=== PATIENT | male | born 1995 ===

== ENCOUNTER 2020-10-24 17:39 | Emergency (ER) | payer OTHER ==
[2020-10-24] MEDS ORDERED: Azithromycin 250 MG Tab PO ONE (19:40)
[2020-10-24] MEDS ORDERED: predniSONE 20 MG Tab PO ONE (19:40)
--- NOTE | 2020-10-24 19:49 | EDM.PDOC ---
ED HPI GENERAL MEDICAL PROBLEM - General Chief Complaint: ENT Problem Stated Complaint: HEAD ACHE ABOVE THE LEFT EYE Time Seen by Provider: 10/24/20 19:35 Source of Information: Reports: Patient History Limitations: Reports: No Limitations - History of Present Illness INITIAL COMMENTS - FREE TEXT/NARRATIVE: This 25 yo male patient reports to the ED with a left sided headache. The patient reports he is feeling like the left side of his head has been in a vice and the pressure is getting worse. The patient has been taking Tylenol, ibuprofen and Sudafed with little to no symptom relief. Onset Date: 10/23/20 Duration: Constant Location: Reports: Head (left maxillary and left frontal sinus pressure and pain with palpation. ) Quality: Reports: Ache, Dull, Pressure Severity: Moderate Improves with: Reports: None Worsens with: Reports: None Associated Symptoms: Reports: No Other Symptoms Treatments [employer]ER: Reports: Acetaminophen, NSAIDS Left Upper Eye Pain Score (Numeric/FACES): 10 - Related Data Allergies Allergy/AdvReac Type Severity Reaction Status Date / Time amoxicillin [From Augmentin] Allergy Cannot Verified 10/24/20 19:17 Remember clavulanic acid Allergy Cannot Verified 10/24/20 19:17 [From Augmentin] Remember Home Meds: Home Meds . [No Known Home Meds] 10/24/20 [History] Past Medical History - Past Health History Medical/Surgical History: Denies Medical/Surgical History Social & Family History - Tobacco Use Tobacco Use Status *Q: Never Tobacco User Second Hand Smoke Exposure: No - Caffeine Use Caffeine Use: Reports: Coffee, Energy Drinks - Alcohol Use Date of Last Drink: 10/19/20 - Recreational Drug Use Recreational Drug Use: No ED ROS ENT - Review of Systems Review Of Systems: Comprehensive ROS is negative, except as noted in HPI. ED EXAM, ENT - Physical Exam Exam: See Below Exam Limited By: No Limitations General Appearance: Alert, WD/WN, Moderate Distress Eye Exam: Bilateral Eye: EOMI, Normal Inspection, PERRL Ears: Normal External Exam, Normal Canal, Hearing Grossly Normal, Normal TMs Nose: Normal Inspection, Normal Mucousa, No Blood Mouth/Throat: Normal Inspection, Normal Gums, Normal Lips, Normal Oropharynx, Normal Teeth Head: Sinus Tenderness (left frontal and maxillary) Neck: Normal Inspection, Supple, Non-Tender, Full Range of Motion Respiratory/Chest: No Respiratory Distress, Lungs Clear, Normal Breath Sounds, No Accessory Muscle Use, Chest Non-Tender GI/Abdominal: Normal Bowel Sounds, Soft, Non-Tender, No Organomegaly, No Distention, No Abnormal Bruit, No Mass (Male) Exam: Deferred Rectal (Males) Exam: Deferred Back: Normal Inspection, Full Range of Motion Extremities: Normal Inspection, Normal Range of Motion, Non-Tender, No Pedal Edema, Normal Capillary Refill Neurological: Alert, Oriented, CN II-XII Intact, Normal Cognition, Normal Gait, Normal Reflexes, No Motor/Sensory Deficits Psychiatric: Normal Affect, Normal Mood Skin: Warm, Dry, Intact, Normal Color, No Rash Lymphatic: No Adenopathy Course - Vital Signs Last Recorded V/S: Last Vital Signs Temp 36.5 C 10/24/20 19:06 Pulse 75 10/24/20 19:06 Resp 17 10/24/20 19:06 BP 133/83 10/24/20 19:06 Pulse Ox 98 10/24/20 19:06 - Orders/Labs/Meds Orders: Active Orders 24 hr Category Date Time Status Azithromycin [Zithromax] Med 10/24/20 19:40 Once 500 mg PO ONETIME ONE predniSONE Med 10/24/20 19:40 Once 40 mg PO ONETIME ONE Medication Orders Azithromycin (Azithromycin 250 Mg Tab) 500 mg PO ONETIME ONE Stop: 10/24/20 19:41 Prednisone (Prednisone 20 Mg Tab) 40 mg PO ONETIME ONE Stop: 10/24/20 19:41 Meds: Medications Generic Name Dose Route Start Last Admin Trade Name Freq PRN Reason Stop Dose Admin Azithromycin 500 mg 10/24/20 19:40 Azithromycin 250 Mg Tab PO 10/24/20 19:41 ONETIME ONE Prednisone 40 mg 10/24/20 19:40 Prednisone 20 Mg Tab PO 10/24/20 19:41 ONETIME ONE Departure - Departure Time of Disposition: 19:55 Disposition: Home, Self-Care 01 Condition: Fair Clinical Impression: Acute sinusitis Qualifiers: Sinusitis location: frontal Recurrence: non-recurrent Qualified Code(s): J01.10 - Acute frontal sinusitis, unspecified - Discharge Information *PRESCRIPTION DRUG MONITORING PROGRAM REVIEWED*: Not Applicable *COPY OF PRESCRIPTION DRUG MONITORING REPORT IN PATIENT LAURA: Not Applicable Instructions: Sinusitis, Adult, [id number] Care Plan Goals: The patient was advised of the examination, lab, EKG and x-ray results during the visit. The patient was given an oral dose of Azithromycin (500 mg) and Prednisone (40 mg) while in the ED. The patient was discharged with a script for Azithromycin (250 mg) #4 to take 1 by mouth daily for 4 days and Prednisone (20 mg) to take 2 by mouth daily for 5 days. The patient was encouraged to continue to take his other medications as prescribed. The patient should follow-up with his primary care facility for continued evaluation and further treatment. If the patient has any additional symptoms or concerns, the patient should either return to the emergency department or visit his primary care facility. Sepsis Event Note (ED) - Evaluation Sepsis Screening Result: No Definite Risk - Focused Exam Vital Signs: Vital Signs Temp Pulse Resp BP Pulse Ox 10/24/20 19:06 36.5 C 75 17 133/83 98 - My Orders Last 24 Hours: My Active Orders 10/24/20 19:40 Azithromycin [Zithromax] 500 mg PO ONETIME ONE predniSONE 40 mg PO ONETIME ONE - Assessment/Plan Last 24 Hours: My Active Orders 10/24/20 19:40 Azithromycin [Zithromax] 500 mg PO ONETIME ONE predniSONE 40 mg PO ONETIME ONE
== END 2020-10-24 20:00 | disposition home or self-care (01) ==
LOC: DL.ED 17:39
DX: J01.10 Acute frontal sinusitis, unspecified (principal); Z88.1 Allergy status to other antibiotic agents
CPT/HCPCS: 99283; A9270; J7512